=== PATIENT | female | born 1945 | race American Indian/Alaskan Native ===

== ENCOUNTER 2018-04-12 00:05 | Emergency (ER) | payer MEDICARE | END 2018-04-12 05:15 | disposition left against medical advice (07) | LOC: ED 00:05 | DX: Z02.89 Encounter for other administrative examinations (principal); Z00.00 Encounter for general adult medical examination without abnormal findings ==

== ENCOUNTER 2018-09-08 11:00 | Outpatient (CLI) | payer MEDICARE | END 2018-09-08 11:01 | disposition home or self-care (01) | LOC: RAD 11:00 ==